=== PATIENT | female | born 2005 | race African-American/Black ===

== ENCOUNTER 2025-03-24 14:46 | Emergency (ER) | payer OTHER, SELFPAY ==
[2025-03-24 14:54] VITALS: BP 128/79; PULSE 101; RESP 18; TEMP 37.1; O2SAT 99; BMI 29.3
--- NOTE | 2025-03-24 15:13 | ED_ITS ---
HPI - General Adult General Chief complaint: Nausea/Vomiting Stated complaint: bloating, stomach pain Time Seen by Provider: 03/24/25 15:09 History of Present Illness HPI narrative: 19-year-old female from [facility] who has moved this week to [facility] and started school, presents with abdominal bloating for the last many months, she thinks at least for 5 months. She reports that her abdomen feels bloated, this happens primarily after she eats. She has had some reflux s ymptoms as well. She has not taken any medicine for this. She is on Benadryl and Zyrtec at home for allergies and takes as needed alprazolam. The patient reports she had some type of breath test probably Helicobacter test in the last few months no endoscopy, no medications no blood work done. She feels like she is at times generally weak. Overall she is functioning at school. She is interested in further assessment. She has not lost weight Related Data Home Medications ?Medication ?Instructions ?Recorded ?Confirmed alprazolam 0.25 mg tablet 0.25 mg PO BID-TID 03/24/25 03/24/25 Allergies Allergy/AdvReac Type Severity Reaction Status Date / Time No Known Drug Allergies Allergy Verified 03/24/25 14:52 Review of Systems Status of ROS: Reports: 6 or more systems reviewed and unremarkable except as noted in History and below [facility] Social History Smoking Status: Never smoker How often do you have a drink containing alcohol: monthly or less AUDIT-C Alcohol total score: 1 Non-prescribed substance use: marijuana (any form) Exam Narrative: Exam Narrative: Objective vital signs are within normal limits Alert orient x3 Patient is in no distress working on her phone HEENT is unremarkable no scleral icterus abdomen benign soft nontender no masses or peritonitis. Neurologic is grossly nonfocal Const: Vital Signs, click to edit/add: Vital Signs - 24 hr 03/24/25 14:54 Temperature 98.8 F Pulse Rate [Pulse Oximeter] 101 H Respiratory Rate 18 Blood Pressure [Ri ght Upper Arm] 128/79 Pulse Oximetry 99 Oxygen Delivery Me thod Room Air Course Vital Signs Vital signs: Initial Vital Signs Temperature 98.8 F 03/24/25 14:54 Temperature Source Temporal Artery Scan 03/24/25 14:54 Pulse Rate 101 H 03/24/25 14:54 Respiratory Rate 18 03/24/25 14:54 Blood Pressure 128/79 03/24/25 14:54 Blood Pressure Mean 95 03/24/25 14:54 Pulse Oximetry 99 03/24/25 14:54 Oxygen Delivery Method Room Air 03/24/25 14:54 Vital Signs Temperature 98.8 F 03/24/25 14:54 Pulse Rate 101 H 03/24/25 14:54 Respiratory Rate 18 03/24/25 14:54 Blood Pressure 128/79 03/24/25 14:54 Pulse Oximetry 99 03/24/25 14:54 Oxygen Delivery Method Room Air 03/24/25 14:54 Temperature 98.8 F 03/24/25 14:54 Pulse Rate 101 H 03/24/25 14:54 Respiratory Rate 18 03/24/25 14:54 Blood Pressure 128/79 03/24/25 14:54 Pulse Oximetry 99 03/24/25 14:54 Oxygen Delivery Method Room Air 03/24/25 14:54 Medications Administered Medications: Discontinued Medications Generic Name Dose Route Start Last Admin Trade Name Marla PRN Reason Stop Dose Admin Omeprazole 20 mg 03/24/25 15:09 03/24/25 15:14 Omeprazole [address] PO 03/24/25 15:10 20 mg ONCE ONE Administration Medical Decision Making MDM Narrative Medical decision making narrative: 19-year-old white female with epigastric discomfort diffuse abdominal discomfort occasionally with postprandial fullness. Rule out stress gastritis. She reports a lot of psychosocial stressors recently and has just moved to school, has had difficulty interacting with family. I would suggest at this point we try a trial of Prilosec 20 mg daily for the next couple of weeks, at this point I think also some blood work would be appropriate and will get electrolytes labs TSH. Will get a test for clarity but the patient denies and reports her last menstrual period was within the last couple weeks. Might make her appointment to see 1 of our endoscopy us in the clinic who does upper GI and O and will see if that would be indicated depending on her response to the Prilosec. This be set up in the next few days. If that would be unusual doing or symptoms continue then imaging of the abdomen such as a CT scan might be indicated, but at this state at her young age I suspect this is more of a gastritis and hopefully proton pump inhibitor would be helpful. Lab Data Labs: Lab Results 03/24/25 Range/Units 15:18 WBC 7.16 (4.50-11.00) K/uL RBC 4.50 (4.00-5.20) m/uL Hgb 11.4 L (12.0-16.0) gm/dL Hct 36.3 (33.0-51.0) % MCV 81 (80-100) fL MCH 25 L (26-34) pg MCHC 31 L (32-36) gm/dL RDW Coeff of Carol 14.3 (11.5-15.5) % Plt Count 373 (140-440) K/uL Neut % (Auto) 42.5 (42.0-72.0) % Lymph % (Auto) 44.0 (20-44) % [place] % (Auto) 8.5 (0.0-11.0) % Eos % (Auto) 3.6 (0.0-7.0) % Baso % (Auto) 1.0 (0.0-3.0) % Neut # (Auto) 3.04 (1.7-7.0) K/uL Lymph # (Auto) 3.15 H (0.90-2.90) K/uL [place] # (Auto) 0.60 (0.00-0.90) K/UL Eos # (Auto) 0.26 (0.00-0.50) K/uL Baso # (Auto) 0.07 (0.00-0.30) K/uL Abs Immat Gran (auto) 0.03 (0.00-0.30) K/uL Imm/Tot Granulo (auto) 0.4 % Sodium 137 (135-149) mmol/L Potassium 4.2 (3.6-5.1) mmol/L Chloride 104 (96-114) mmol/L Carbon Dioxide 28 (20-32) mmol/L Anion Gap 5 L (7-15) mEq/L BUN 7 (5-24) mg/dL Creatinine 0.9 (0.5-1.5) mg/dL Estimated Creat Clear 74.61 Estimated GFR 93 ml/min Glucose 105 (60-115) mg/dL Calcium 9.0 (8.4-10.6) mg/dL Total Bilirubin 0.5 (0.1-1.5) mg/dL Direct Bilirubin 0.2 (0.0-0.5) mg/dL AST 40 H (12-35) U/L ALT 21 (4-35) U/L Alkaline Phosphatase 78 (40-150) U/L C-Reactive Protein < 0.5 L (0.5-1.0) mg/dL Total Protein 7.5 (6.0-8.3) g/dL Albumin 4.3 (3.3-5.0) g/dL Discharge Plan Discharge Clinical Impression: Generalized postprandial abdominal pain Patient Disposition: Home, Self-Care Condition: Stable Additional Instructions: Recommend Prilosec 20 mg once a day, which is [id number], to twice a day for the next 2 weeks. We will set her up to see a primary care doctor who also does endoscopy and consideration of upper endoscopy. If he respond well to the Prilosec that may not be necessary. Will check all your lab studies today and those will be available for your consultation. We will call you if there is any marked abnormalities in her lab studies today. Follow up appointment is scheduled at the [facility] on 03/31 with a 1:15pm appointment time. If you have any questions or need to reschedule, please call [phone]. [facility] [address] [place] [address] Activity Level: No Restrictions Discharge Diet: High Fiber Prescriptions: No Action alprazolam 0.25 mg tablet 0.25 mg PO BID-TID Stand Alone Forms: [employer] Info Instructions
[2025-03-24] MEDS: OMEPRAZOLE 20 MG CAPSULE DR PO (15:14)
[2025-03-24 15:31] LABS: Hematocrit* 36.3 % (33.0-51.0); Hemoglobin* 11.4 gm/dL (12.0-16.0); Immature Granulocytes Abs Auto 0.03 K/uL (0.00-0.30); Immature Granulocytes Pct Auto 0.4 %; Lymphocytes Absolute Auto 3.15 K/uL (0.90-2.90); Mean Corpuscular HGB Conc 31 gm/dL (32-36); Mean Corpuscular Hemoglobin 25 pg (26-34); Mean Corpuscular Volume 81 fL (80-100); RDW Coefficient of Variation % 14.3 % (11.5-15.5); Red Blood Count* 4.50 m/uL (4.00-5.20); White Blood Count* 7.16 K/uL (4.50-11.00)
[2025-03-24 15:39] LABS: Albumin* 4.3 g/dL (3.3-5.0); Chloride* 104 mmol/L (96-114); Sodium* 137 mmol/L (135-149)
[2025-03-24 15:40] LABS: Potassium* 4.2 mmol/L (3.6-5.1); Slide Review Reflex No
[2025-03-24 15:42] LABS: Alanine Aminotransferase* 21 U/L (4-35); Alkaline Phosphatase* 78 U/L (40-150); Anion Gap 5 mEq/L (7-15); Aspartate Amino Transferase* 40 U/L (12-35); Bilirubin Direct* 0.2 mg/dL (0.0-0.5); Bilirubin Total* 0.5 mg/dL (0.1-1.5); Blood Urea Nitrogen* 7 mg/dL (5-24); Carbon Dioxide* 28 mmol/L (20-32); Creatinine* 0.9 mg/dL (0.5-1.5); Est. Creatinine Clearance* 74.61; Estimated Glomerular Filt Rate 93 ml/min; Total Protein* 7.5 g/dL (6.0-8.3)
[2025-03-24 15:43] LABS: Calcium* 9.0 mg/dL (8.4-10.6); Glucose* 105 mg/dL (60-115)
[2025-03-24 16:35] LABS: HCG Qualitative Serum* Negative (Negative)
== END 2025-03-24 15:53 | disposition home or self-care (01) ==
LOC: ED 15:46
PROVIDERS: Emergency Provider Family Medicine
DX: R10.84 Generalized abdominal pain (principal)
CPT/HCPCS: 36415; 80048; 80076; 84443; 84703; 85025; 86140; 99283; A9270

== ENCOUNTER 2025-04-05 14:35 | Outpatient (CLI) | payer OTHER, SELFPAY ==
--- NOTE | 2025-04-05 15:00 | CRLHL7_ITS ---
For Patients: As a result of the Century Cures Act, medical imaging exams and procedure reports are released immediately into your electronic medical record. You may view this report before your referring provider. If you have questions, please contact your health care provider. INDICATION: ABDOMINAL PAIN COMPARISON: none TECHNIQUE: Real time matos scale imaging and color Doppler analysis was performed of the right upper quadrant. FINDINGS: The patient`s liver is of normal size and has uniform echogenicity. There is a normal appearance of the hepatic IVC and proximal abdominal aorta. There is no evidence of ascites. The gallbladder is of normal size and there is no evidence of intraluminal stones or sludge. The gallbladder wall measures 1 mm in thickness. The common bile duct is of normal size and measures 3 mm in diameter at the level of the natali hepatis. The pancreas appears normal. There is no evidence of a stone or hydronephrosis within the right kidney. The right kidney measures 10.4 cm in length. IMPRESSION: Normal right upper quadrant ultrasound. Dictated by Noble Romano MD @ 04/05/2025 4:01:09 PM (Electronically Signed)
== END 2025-04-05 14:36 | disposition home or self-care (01) ==
LOC: US 14:35
PROVIDERS: Visit Provider Internal Medicine
DX: R10.84 Generalized abdominal pain (principal)
CPT/HCPCS: 76705

== ENCOUNTER 2025-04-13 07:10 | Outpatient (CLI) | payer OTHER, SELFPAY ==
--- NOTE | 2025-04-13 08:00 | CRLHL7_ITS ---
For Patients: As a result of the Century Cures Act, medical imaging exams and procedure reports are released immediately into your electronic medical record. You may view this report before your referring provider. If you have questions, please contact your health care provider. INDICATION: abdominal pain TECHNIQUE: Tc-99m Mebrofenin 8 mCi was injected intravenously. Images of the liver, gallbladder and abdomen were obtained for 60 minutes. 1.4 mcg CCK was then administered intravenously and imaging continued for an additional 29 minutes. COMPARISON: Ultrasound 04/05/2025 FINDINGS: There is good uptake of activity by the hepatocytes. There is visualization of the biliary tree, gallbladder and small bowel. In response to CCK administration, there is a normal gallbladder ejection fraction of 63 percent. IMPRESSION: 1. Normal study. There is no evidence of acute or chronic cholecystitis. 2. Normal gallbladder ejection fraction of 63 percent. Dictated by Noble Romano MD @ 04/13/2025 11:14:35 AM (Electronically Signed)
== END 2025-04-13 07:11 | disposition home or self-care (01) ==
LOC: NM 07:11
PROVIDERS: Visit Provider Internal Medicine
DX: R10.84 Generalized abdominal pain (principal)
CPT/HCPCS: 78227; A9537; J2805